=== PATIENT | female | born 1960 | race African-American/Black ===

== ENCOUNTER 2019-01-13 18:35 | Emergency (ER) | payer MEDICARE, OTHER ==
[~2019-01-13] VITALS: Ht 175.3 cm; Wt 86.2 kg
[~2019-01-13 18:35] MED LIST: ABILIFY5 MG PO; ALBUTEROL SULF8.5 GM INH; ASPIRIN EC81 MG ORAL; AUGMENTIN TAB875 MG PO; AZITHROMYCIN250 MG ORAL; AZITHROMYCIN250 MG PO; BENAZEPRIL-HCT1 EACH PO; BUPROPION HCL75 MG PO; DIFLUCAN100 MG PO; EXFORGE HCT 101 EAC2 ORAL; LEVOTHYROXINE100 MCG ORAL; LIDOCAINE20 MG/1 M1 MM; METOPROLOL SUC100 MG ORAL; PHENERGAN/CODE120 ML ORAL; PHENERGAN/CODE120 ML PO; PREMARIN0.3 MG ORAL; PROMETHAZINE-C118 M1 ORAL; PROMETHAZINE/COD5 ML PO; SERTRALINE HCL100 MG PO; SERTRALINE HCL25 MG ORAL; TEMAZEPAM15 MG ORAL; TYLENOL/CODEI12.5 ML PO; ZANTAC150 MG ORAL; [UNRECOGNIZED DRUG - OTHER]
[2019-01-13 19:10] VITALS: BP 145/83
--- NOTE | 2019-01-13 19:10 | NUR ---
ED Nurse Note: Pt arrived ED from home, c/o vaginal discharge for 3 days. Pt is A/O X4. Vital signs stable at this time, waiting for orders.
[2019-01-13 19:23] LABS: APPEARANCE,URINE SLIGHTLY CLOUDY; BILIRUBIN, URINE 2+ (NEGATIVE); GLUCOSE, URINE (UA) NEGATIVE (NEGATIVE); KETONES,URINE 3+ (NEGATIVE); LEUKOCYTE ESTERASE ,URINE 3+ (NEGATIVE); NITRITE,URINE POSITIVE (NEGATIVE); PH,URINE 5 (4.5-8.0); PROTEIN,URINE 3+ (NEGATIVE); UROBILINOGEN,URINE 4 MG/DL (0.0-1.0)
[2019-01-13 19:30] LABS: COLOR,URINE YELLOW
[2019-01-13] MEDS ORDERED: NITROFURANTOIN100 M2 ORAL (19:43)
[2019-01-13 19:52] VITALS: BP 145/83
--- NOTE | 2019-01-13 19:52 | NUR ---
ER DISCHARGE NOTE: Patient is cleared to be discharged per Héctor LUDWIG. Pt is A/O x4 on room air with stable vital signs. Pt was given D/C instructions and was able to verbalize understanding. Pt's ID band removed. Pt is able to ambulate with steady gait and took all belongings.
--- NOTE | 2019-01-13 20:58 | Emergency Room Report ---
History of Present Illness General Chief Complaint: Female Urogenital Problems Source: Patient Present Illness HPI The patient is a 58-year-old female presenting for dysuria and foul vaginal odor for 3 days. She is unable to describe the odor but states that he does not fishy. She is having burning with urination. She denies hematuria, back pain, abdominal pain, nausea, vomiting, fever, chills Allergies: Coded Allergies: No Known Allergies (Unverified , 08/12/12) Patient History Past Medical History: see triage record Pertinent Family History: none Last Menstrual Period: na Reviewed Nursing Documentation: PMH: Agreed; PSxH: Agreed Nursing Documentation-PMH Past Medical History: No History, Except For Hx Cardiac Problems: Yes Hx Hypertension: Yes Hx Asthma: Yes Hx Diabetes: Yes Hx Cancer: Yes - tongue, neck Hx Neurological Problems: Yes - arthritis, back sx Review of Systems All Other Systems: negative except mentioned in HPI Physical Exam Vital Signs Date Time Temp Pulse Resp B/P (MAP) Pulse Ox O2 Delivery O2 Flow Rate FiO2 01/13/19 18:54 98.4 89 20 150/90 99 Room Air Sp02 EP Interpretation: reviewed, normal General Appearance: no apparent distress, alert, GCS 15, non-toxic Head: normocephalic, atraumatic Gastrointestinal: normal bowel sounds, non tender, soft, non-distended, no guarding, no rebound Rectal: deferred Genitourinary: normal inspection, no CVA tenderness Musculoskeletal: back normal, gait/station normal, normal range of motion, non- tender Neurologic: alert, oriented x3, responsive, motor strength/tone normal, sensory intact, speech normal Psychiatric: judgement/insight normal, memory normal, mood/affect normal, no suicidal/homicidal ideation Skin: normal color, no rash, warm/dry, well hydrated Medical Decision Making PA Attestation Dr. Hair is my supervising physician. Patient management was discussed with my supervising physician Diagnostic Impression: Primary Impression: UTI (urinary tract infection) Qualified Codes: N30.01 - Acute cystitis with hematuria ER Course Patient is a 58-year-old female presenting for dysuria Differential diagnosis considered but not limited to: UTI, BV, yeast infection, pyelonephritis, STD, among others PE: Vitals WNL. NAD. Abdomen: Normal appearance. Non distended. No ecchymosis. Normal BS. TTP over suprapubic region only. No McBurney point tenderness. No guarding. No CVA tenderness Urinalysis is consistent with urinary tract infection. +nitrites The patient discharged home with a prescription for Macrobid and is given ER precautions. Laboratory Tests Test 01/13/19 19:10 Urine Color Yellow Urine Appearance Slightly cloudy Urine pH 5 (4.5-8.0) Urine Specific [place] 1.020 (1.005-1.035) Urine Protein 3+ (NEGATIVE) H Urine Glucose (UA) Negative (NEGATIVE) Urine Ketones 3+ (NEGATIVE) H Urine Blood 4+ (NEGATIVE) H Urine Nitrite Positive (NEGATIVE) H Urine Bilirubin 2+ (NEGATIVE) H Urine Ictotest Negative (NEGATIVE) Urine Urobilinogen 4 MG/DL (0.0-1.0) H Urine Leukocyte Esterase 3+ (NEGATIVE) H Urine RBC 5-10 /HPF (0 - 2) H Urine WBC Tntc /HPF (0 - 2) H Urine Squamous Epithelial Cells Few /LPF (NONE/OCC) Urine Bacteria Moderate /HPF (NONE) H Lab Results Impression Urinalysis has bacteria, white blood cells, and nitrites Last Vital Signs Date Time Temp Pulse Resp B/P (MAP) Pulse Ox O2 Delivery O2 Flow Rate FiO2 01/13/19 18:54 98.4 89 20 150/90 99 Room Air Status: improved Disposition: HOME, SELF-CARE Condition: Improved Scripts Nitrofurantoin Monohyd/M-Cryst* (MACROBID 100 MG*) 100 Mg Capsule 100 MG ORAL EVERY 12 HOURS, #14 CAP Prov: MIRIAN ZALDIVAR 01/13/19 Patient Instructions: Urinary Tract Infection Additional Instructions: I discussed my findings with the patient. All questions and concerns have been answered. Treatment and medication compliance have been addressed. I advised the patient that they need to follow up with your primary doctor in 3-5 days. Return to EDR if symptoms worsen, new symptoms arise, or if needed for any reason. Patient verbalized understanding of discharge instructions. MIRIAN ZALDIVAR Jan 13, 2019 20:58
== END 2019-01-13 19:52 | disposition home or self-care (01) ==
LOC: EMR 19:10
DX: N30.01 Acute cystitis with hematuria (principal); E11.9 Type 2 diabetes mellitus without complications; I10 Essential (primary) hypertension; J45.909 Unspecified asthma, uncomplicated; M19.90 Unspecified osteoarthritis, unspecified site; Z85.810 Personal history of malignant neoplasm of tongue; Z85.89 Personal history of malignant neoplasm of other organs and systems
CPT/HCPCS: 81003; 87086; 87181; 99283

== ENCOUNTER 2019-01-16 12:01 | Emergency (ER) | payer MEDICARE, OTHER ==
[~2019-01-16] VITALS: Ht 175.3 cm; Wt 91.2 kg
[~2019-01-16 12:01] MED LIST changes: +NITROFURANTOIN100 M2 ORAL
--- NOTE | 2019-01-16 12:17 | NUR ---
ED Nurse Note: Pt came into the ER w/ compalints of dysuria x 3 days. Pt is rating the pain an 8/10. Non radiating. Pt was here in the ER 3 days ago for the same thing and was given macrobid but symptoms have "not gotten better." Pt is A + O x4. Ambulatory. Skin warm to touch.
[2019-01-16 12:19] VITALS: BP 130/85
--- NOTE | 2019-01-16 12:24 | Emergency Room Report ---
History of Present Illness General Chief Complaint: Female Urogenital Problems Present Illness HPI 58-year-old female presents to the emergency department complaining of dysuria as well as pelvic pain that has been progressive despite starting Macrobid after being diagnosed with UTI 2 nights ago. Patient reports she has had recent unprotected intercourse she also discloses that she has been noticing some dark brown bowel smelling discharge. Denies abdominal tenderness, N/V, constipation or diarrhea. Patient denies swollen tender lymph nodes, joint pain , fevers or chills. Patient denies rashes or genital lesions. Reports hx of DM , hypothyroid, hypertension. Allergies: Coded Allergies: No Known Allergies (Unverified , 08/12/12) Patient History Past Medical History: see triage record Past Surgical History: none Pertinent Family History: none Reviewed Nursing Documentation: PMH: Agreed; PSxH: Agreed Nursing Documentation-PMH Hx Cardiac Problems: Yes Hx Hypertension: Yes Hx Asthma: Yes Hx COPD: Yes Hx Diabetes: Yes Hx Cancer: Yes - tongue, neck Hx Neurological Problems: Yes - arthritis, back sx Review of Systems All Other Systems: negative except mentioned in HPI Physical Exam Vital Signs Date Time Temp Pulse Resp B/P (MAP) Pulse Ox O2 Delivery O2 Flow Rate FiO2 01/16/19 12:09 98.4 58 18 135/86 99 Room Air Sp02 EP Interpretation: reviewed, normal General Appearance: no apparent distress, alert, GCS 15, non-toxic Head: normocephalic, atraumatic Eyes: bilateral eye normal inspection, bilateral eye PERRL ENT: hearing grossly normal, normal voice Neck: full range of motion Respiratory: lungs clear, normal breath sounds, speaking full sentences Cardiovascular #1: regular rate, rhythm Gastrointestinal: normal bowel sounds, non tender, soft, non-distended, no guarding Rectal: deferred Genitourinary: normal inspection, no CVA tenderness, deferred - Pelvic deferred by pt. Musculoskeletal: back normal, gait/station normal, normal range of motion, non- tender Neurologic: alert, oriented x3, responsive, motor strength/tone normal, sensory intact, speech normal, grossly normal Psychiatric: judgement/insight normal Skin: normal color, no rash, warm/dry, well hydrated Lymphatic: no adenopathy Medical Decision Making PA Attestation Dr. Salvador is my supervising Physician whom patient management has been discussed with. Diagnostic Impression: Primary Impression: Dysuria Additional Impression: Contact with or exposure to venereal diseases ER Course 58-year-old female presents to the emergency department complaining of dysuria as well as pelvic pain that has been progressive despite starting Macrobid after being diagnosed with UTI 2 nights ago. Patient reports she has had recent unprotected intercourse she also discloses that she has been noticing some dark brown bowel smelling discharge. Denies abdominal tenderness, N/V, constipation or diarrhea. Patient denies swollen tender lymph nodes, joint pain , fevers or chills. Patient denies rashes or genital lesions. Reports hx of DM , hypothyroid, hypertension. Ddx considered but are not limited to UTi , Pyelo, STI, Stone, Cystitis Vital signs: are WNL, pt. is afebrile H&PE are most consistent with UTI ORDERS: - UA labs are attached ED INTERVENTIONS: -Pyridium -Diflucan PO -Zofran - Pt. became nauseated/ vomited after Pyridium. -Rocephin IM -Azithromycin PO -I do not identify an emergent condition at this time. With current presentation , pt. is stable for close outpatient follow up and conservative treatment. D/ w pt. to return promptly to ED with worsening or new symptoms.- Pt. verbalizes' understanding and agreement with proposed treatment plan.proposed treatment plan. DISCHARGE: At this time pt. is stable for d/c to home. Will provide printed patient care instructions, and any necessary prescriptions. Care plan and follow up instructions have been discussed with the patient prior to discharge. Labs Test 01/16/19 12:36 Urine Color Yellow Urine Appearance Slightly cloudy Urine pH 6 (4.5-8.0) Urine Specific [place] 1.015 (1.005-1.035) Urine Protein 1+ (NEGATIVE) Urine Glucose (UA) 4+ (NEGATIVE) Urine Ketones 1+ (NEGATIVE) Urine Blood 1+ (NEGATIVE) Urine Nitrite Negative (NEGATIVE) Urine Bilirubin Negative (NEGATIVE) Urine Urobilinogen 1 MG/DL (0.0-1.0) Urine Leukocyte Esterase 3+ (NEGATIVE) Urine RBC 5-10 /HPF (0 - 2) Urine WBC 15-20 /HPF (0 - 2) Urine Squamous Epithelial Cells Few /LPF (NONE/OCC) Urine Bacteria Few /HPF (NONE) Last Vital Signs Date Time Temp Pulse Resp B/P (MAP) Pulse Ox O2 Delivery O2 Flow Rate FiO2 01/16/19 12:19 98.3 78 20 130/85 98 Room Air Disposition: HOME, SELF-CARE Condition: Stable Scripts Metronidazole* (FLAGYL*) 500 Mg Tablet 500 MG ORAL BID for 7 Days, #14 TAB 0 Refills Prov: Diandra Casillas 01/16/19 Patient Instructions: Vaginitis Additional Instructions: Take medications as directed. Follow up with a [facility] within 3-5 days, even if your symptoms have resolved. Return sooner to ED if new symptoms occur, or current symptoms become worse. - Please note that this Emergency Department Report was dictated using [employer] changer technology software, occasionally this can lead to erroneous entry secondary to interpretation by the dictation equipment. Diandra Casillas Jan 16, 2019 12:24
[2019-01-16] MEDS ORDERED: Phenazopyridine 200mg tab ORAL ONE (12:45)
[2019-01-16] MEDS ORDERED: Fluconazole 100mg tab ORAL ONE (12:45)
[2019-01-16 12:57] LABS: APPEARANCE,URINE SLIGHTLY CLOUDY; BILIRUBIN, URINE NEGATIVE (NEGATIVE); GLUCOSE, URINE (UA) 4+ (NEGATIVE); KETONES,URINE 1+ (NEGATIVE); LEUKOCYTE ESTERASE ,URINE 3+ (NEGATIVE); NITRITE,URINE NEGATIVE (NEGATIVE); PH,URINE 6 (4.5-8.0); PROTEIN,URINE 1+ (NEGATIVE); UROBILINOGEN,URINE 1 MG/DL (0.0-1.0)
[2019-01-16 12:59] LABS: COLOR,URINE YELLOW
[2019-01-16] MEDS ORDERED: Lidocaine 1% MPF 10mg/ml 5ml INJ ONE (13:30)
[2019-01-16] MEDS ORDERED: METRONIDAZOLE500 MG ORAL (13:42)
[2019-01-16] MEDS ORDERED: Azithromycin 250mg tab ORAL ONE (13:45)
[2019-01-16 13:54] VITALS: BP 125/88
--- NOTE | 2019-01-16 13:55 | NUR ---
ER DISCHARGE NOTE: Patient is cleared to be discharged per ERMD, pt is aox4, on room air, with stable vital signs. pt was given dc and prescription instructions, pt was able to verbalize understanding, pt id band removed without complications. pt is able to ambulate with steady gait. pt took all belongings.
== END 2019-01-16 13:55 | disposition home or self-care (01) ==
LOC: EMR 12:33
DX: R30.0 Dysuria (principal); Z20.9 Contact with and (suspected) exposure to unspecified communicable disease; I10 Essential (primary) hypertension; J44.9 Chronic obstructive pulmonary disease, unspecified; E11.9 Type 2 diabetes mellitus without complications; Z85.810 Personal history of malignant neoplasm of tongue; Z85.89 Personal history of malignant neoplasm of other organs and systems; M19.90 Unspecified osteoarthritis, unspecified site
CPT/HCPCS: 81003; 87086; 96372; 96374; 99284; J0696

== ENCOUNTER 2019-05-04 20:27 | Emergency (ER) | payer MEDICARE, OTHER ==
[~2019-05-04] VITALS: Ht 175.3 cm; Wt 85.7 kg
[~2019-05-04 20:27] MED LIST changes: +METRONIDAZOLE500 MG ORAL
--- NOTE | 2019-05-04 20:40 | NUR ---
ED Nurse Note: pt walked in c/o brownish watery vaginal discharge with foul odor for couple of days. pt reports she recently been tx trich w/ flagyl for 2 months.
--- NOTE | 2019-05-04 20:52 | Emergency Room Report ---
History of Present Illness General Chief Complaint: Female Urogenital Problems Present Illness HPI 70-year-old female with no significant past medical history here complaining of a malodorous vaginal discharge that started 2 weeks ago. Patient reports that for the past 2 months she has been having intermittent vaginal discharge was diagnosed with trichomoniasis and treated with Flagyl twice. However patient reports that she had sexual intercourse with a new male partner without using any protection 2 weeks ago. She noticed excess clear malodorous vaginal discharge few days after a sexual encounter. Denies dysuria, vaginal pruritus and ulcers. Denies suprapubic pain, nausea vomiting, fever and chills. Patient reports that she had a hysterectomy few years ago and has not seen a pouch maker though she was told by her primary care that she needs to see one. Denies chest pain, hematuria, shortness of breath, palpitation. Patient is describing the discharge being blood-tinged sometimes. Allergies: Coded Allergies: No Known Allergies (Unverified , 08/12/12) Patient History Past Medical History: see triage record Past Surgical History: unable to obtain Pertinent Family History: none Now: No Immunizations: UTD Reviewed Nursing Documentation: PMH: Agreed; PSxH: Agreed Nursing Documentation-PMH Hx Cardiac Problems: Yes - mitral insufficiency Hx Hypertension: Yes Hx Asthma: Yes Hx COPD: Yes Hx Diabetes: Yes Hx Cancer: Yes - tongue, neck Hx Neurological Problems: Yes - arthritis, back sx Review of Systems All Other Systems: negative except mentioned in HPI Physical Exam Vital Signs Date Time Temp Pulse Resp B/P (MAP) Pulse Ox O2 Delivery O2 Flow Rate FiO2 05/04/19 20:32 98.1 63 18 152/89 (110) 98 Room Air Sp02 EP Interpretation: reviewed, normal General Appearance: normal inspection, well appearing, no apparent distress, alert, GCS 15, non-toxic Head: normocephalic, atraumatic Eyes: bilateral eye normal inspection, bilateral eye PERRL ENT: normal ENT inspection, normal pharynx Neck: normal inspection, full range of motion Respiratory: normal inspection, chest non-tender, lungs clear, no wheezing Cardiovascular #1: normal inspection, normal peripheral pulses, regular rate, rhythm, no murmur Gastrointestinal: normal inspection, no mass Genitourinary: no CVA tenderness Musculoskeletal: normal inspection, back normal Neurologic: normal inspection, alert, oriented x3, responsive Psychiatric: normal inspection, judgement/insight normal Skin: no rash Lymphatic: normal inspection, no adenopathy Medical Decision Making PA Attestation Diagnosis and treatment plans were reviewed and discussed with my supervising physician Dr. De Jesus Diagnostic Impression: Primary Impression: Vaginitis Additional Impression: STD exposure ER Course 70-year-old female with no significant past medical history here complaining of a malodorous vaginal discharge that started 2 weeks ago. Patient reports that for the past 2 months she has been having intermittent vaginal discharge was diagnosed with trichomoniasis and treated with Flagyl twice. However patient reports that she had sexual intercourse with a new male partner without using any protection 2 weeks ago. She noticed excess clear malodorous vaginal discharge few days after a sexual encounter. Denies dysuria, vaginal pruritus and ulcers. Denies suprapubic pain, nausea vomiting, fever and chills. Patient reports that she had a hysterectomy few years ago and has not seen a pouch maker though she was told by her primary care that she needs to see one. Denies chest pain, hematuria, shortness of breath, palpitation. Patient is describing the discharge being blood-tinged sometimes. Ddx considered but are not limited to: vaginitis, yeast infection, BV, chlamydia , Gonorrhea, syphilis, HIV, herpes 1 or 2 Vital signs: are WNL, pt. is afebrile H&PE are most consistent with : Possible chlamydia, gonorrhea, trichomoniasis, yeast infection ORDERS: UA, GC and chlamydia, Rocephin, doxycycline, Diflucan, Flagyl ED INTERVENTIONS: Rocephin 250 DISCHARGE: At this time pt. is stable for d/c to home. Will provide printed patient care instructions, and any necessary prescriptions. Care plan and follow up instructions have been discussed with the patient prior to discharge. Advised patient to follow-up with her pouch maker as she is still has her cervix and repeated exposure to sexually transmitted diseases with multiple partners puts her at risk patient agrees to prophylactic treatments. Last Vital Signs Date Time Temp Pulse Resp B/P (MAP) Pulse Ox O2 Delivery O2 Flow Rate FiO2 05/04/19 20:32 98.1 63 18 152/89 (110) 98 Room Air Disposition: HOME, SELF-CARE Condition: Stable Scripts Fluconazole (FLUCONAZOLE) 150 Mg Tablet 150 MG ORAL ONCE for 1 Day, #1 TAB 0 Refills Prov: Sahelimoghavami,Nahal PA 05/04/19 Metronidazole* (FLAGYL*) 500 Mg Tablet 2 TAB ORAL EVERY 12 HOURS for 1 Day, #4 TAB Prov: Richmond Gutiérrez 05/04/19 Doxycycline Hyclate (DOXYCYCLINE HYCLATE) 100 Mg Tablet 100 MG PO BID for 7 Days, #10 TAB Prov: Richmond Gutiérrez 05/04/19 Patient Instructions: Chlamydia, Female, [id number], Gonorrhea, Vaginitis Additional Instructions: Take medication as directed you agreed to be treated for possible sexually transmitted diseases before the results are ready. Follow-up with your primary care provider for referral to pouch maker. Richmond Gutiérrez May 04, 2019 20:52
--- NOTE | 2019-05-04 20:59 | NUR ---
ED Nurse Note: URINE COLLECTED; SENT DOWN TO LAB.
[2019-05-04] MEDS ORDERED: Lidocaine 1% MPF 10mg/ml 5ml INJ ONE (21:00)
[2019-05-04] MEDS ORDERED: DOXYCYCLINE HY100 M6 PO (21:03)
[2019-05-04] MEDS ORDERED: FLUCONAZOLE150 MG ORAL (21:03)
[2019-05-04] MEDS ORDERED: METRONIDAZOLE500 MG ORAL (21:03)
--- NOTE | 2019-05-04 21:05 | NUR ---
ER DISCHARGE NOTE: Patient is cleared to be discharged per ERMD, pt is aox4, on room air, with stable vital signs. pt was given dc and prescription instructions, pt was able to verbalize understanding, pt id band removed. pt is able to ambulate with steady gait. pt took all belongings.
[2019-05-04 21:06] VITALS: BP 152/89
[2019-05-04 21:33] LABS: APPEARANCE,URINE CLEAR; BILIRUBIN, URINE 2+ (NEGATIVE); GLUCOSE, URINE (UA) 3+ (NEGATIVE); KETONES,URINE 1+ (NEGATIVE); LEUKOCYTE ESTERASE ,URINE 2+ (NEGATIVE); NITRITE,URINE NEGATIVE (NEGATIVE); PH,URINE 5 (4.5-8.0); PROTEIN,URINE 3+ (NEGATIVE); UROBILINOGEN,URINE 4 MG/DL (0.0-1.0)
[2019-05-04 21:54] LABS: COLOR,URINE YELLOW
== END 2019-05-04 21:05 | disposition home or self-care (01) ==
LOC: EMR 20:50
DX: N76.0 Acute vaginitis (principal); Z20.2 Contact with and (suspected) exposure to infections with a predominantly sexual mode of transmission; I10 Essential (primary) hypertension; J44.9 Chronic obstructive pulmonary disease, unspecified; E11.9 Type 2 diabetes mellitus without complications; M19.90 Unspecified osteoarthritis, unspecified site; Z85.810 Personal history of malignant neoplasm of tongue; Z85.89 Personal history of malignant neoplasm of other organs and systems
CPT/HCPCS: 81001; 87086; 87590; 96372; 99283; J0696

== ENCOUNTER 2020-06-20 12:38 | Emergency (ER) | payer MEDICARE, OTHER ==
[~2020-06-20] VITALS: Ht 175.3 cm; Wt 89.8 kg
[~2020-06-20 12:38] MED LIST changes: +DOXYCYCLINE HY100 M6 PO; +FLUCONAZOLE150 MG ORAL
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
[2020-06-20] MEDS ORDERED: Ketorolac 30mg Inj IM ONE (13:15)
[2020-06-20] MEDS ORDERED: Bacitracin Oint UD TOPIC ONE (13:15)
--- NOTE | 2020-06-20 13:26 | NUR ---
ED Nurse Note: Pt taken to CT.
[2020-06-20 13:27] VITALS: BP 160/94
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
--- NOTE | 2020-06-20 14:18 | Diagnostic Imaging Report ---
EXAM: CT Lumbar Spine Without Intravenous Contrast CLINICAL HISTORY: TRAUMA TECHNIQUE: Axial computed tomography images of the lumbar spine without intravenous contrast. CTDI is 13.7 mGy and DLP is 504.1 mGy-cm. One or more of the following dose reduction techniques were used: automated exposure control, adjustment of the mA and/or kV according to patient size, use of iterative reconstruction technique. COMPARISON: None FINDINGS: Bones: Age indeterminate but likely chronic superior endplate depression of the L1 vertebral body. Age indeterminate nondisplaced fracture of the left L3 transverse process. Posterior fusion hardware from L2-S1. Disc spaces: No subluxation. Degenerative changes of the spine. Evaluation of spinal canal contents is somewhat limited by artifact from the spinal hardware. No definite spinal canal stenosis. Moderate bilateral neural foraminal stenoses. L1-2. Mild bilateral neural foraminal stenoses at L4-5. Moderate bilateral neural foraminal stenoses at L5-S1. Soft tissues: Normal. Other: Atherosclerotic changes of the vasculature. Normal appendix. IMPRESSION: 1. Age indeterminate but likely chronic superior endplate depression of the L1 vertebral body. Age indeterminate nondisplaced fracture of the left L3 transverse process. 2. Evaluation of spinal canal contents is somewhat limited by artifact from the spinal hardware. No definite spinal canal stenosis. Moderate bilateral neural foraminal stenoses. L1-2. Mild bilateral neural foraminal stenoses at L4-5. Moderate bilateral neural foraminal stenoses at L5-S1.
[2020-06-20] MEDS ORDERED: oxyCODONE HCL/Acetaminophen 5/325mg ORAL ONE (14:45)
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
[2020-06-20] MEDS ORDERED: ROBAXIN-500MG ORAL (14:56)
[2020-06-20] MEDS ORDERED: BACITRACIN15 GM TOPIC (14:56)
[2020-06-20] MEDS ORDERED: IBUPROFEN600 M1 ORAL (14:56)
[2020-06-20] MEDS ORDERED: TRAMADOL HCL50 MG ORAL (14:56)
[2020-06-20 15:31] VITALS: BP 152/91
--- NOTE | 2020-06-20 15:31 | NUR ---
ER DISCHARGE NOTE: Patient is cleared to be discharged per ERMD, pt is aox4, on room air, with stable vital signs. pt was given dc and prescription instructions, pt was able to verbalize understanding, pt id band removed. pt is able to ambulate with steady gait. pt took all belongings. Pt educated regarding prescription.
== END 2020-06-20 15:33 | disposition home or self-care (01) ==
LOC: EMR 13:05
DX: S01.01XA Laceration without foreign body of scalp, initial encounter (principal); S20.229A Contusion of unspecified back wall of thorax, initial encounter; Y09 Assault by unspecified means; E11.9 Type 2 diabetes mellitus without complications; M19.90 Unspecified osteoarthritis, unspecified site; I10 Essential (primary) hypertension; Z87.891 Personal history of nicotine dependence; J44.9 Chronic obstructive pulmonary disease, unspecified; Z85.810 Personal history of malignant neoplasm of tongue; Z85.89 Personal history of malignant neoplasm of other organs and systems; H57.89 Other specified disorders of eye and adnexa
CPT/HCPCS: 12001; 70450; 72131; 96372; 99284; J1885